=== PATIENT | female | born 1990 | race Two or more races ===

== ENCOUNTER 2022-08-31 11:28 | Emergency (ER) | payer OTHER ==
[~2022-08-31] VITALS: Ht 165.1 cm; Wt 99.8 kg
[~2022-08-31 11:28] MED LIST: LEVSIN0.125 MG PO; PROTONIX40 MG PO; ZANTAC300 MG PO; ZOFRAN4 MG PO
== END 2022-08-31 14:49 | disposition home or self-care (01) ==
LOC: ER 11:28
DX: R05.9 Cough, unspecified (principal); Z20.822 Contact with and (suspected) exposure to COVID-19